=== PATIENT | female | born 1985 | race Asian ===

== ENCOUNTER 2025-01-18 22:34 | Emergency (ER) | payer OTHER ==
[~2025-01-18] VITALS: Ht 167.6 cm; Wt 69.1 kg
[2025-01-18 22:51] VITALS: TEMP 97.305224
[2025-01-18] MEDS ORDERED: VALP250S23 PO (23:21)
[2025-01-18 23:23] LABS: CALCIUM, TOTAL 8.4 mg/dL (8.8-10.5); CREATININE 0.87 mg/dL (0.60-1.30); GLOMERULAR FILTR. RATE CALC > 60 mL/min (>60); GLUCOSE,RANDOM 235 mg/dL (70-110); SODIUM SERUM 136 mmol/L (136-145); UREA NITROGEN, BLOOD 15 mg/dL (7-18)
[2025-01-18 23:24] LABS: PLATELET COUNT (AUTO) 195 K/uL (150-450); RED BLOOD CELL COUNT(AUTO) 3.41 MIL/uL (4.00-5.20); RED CELL DISTRIBUTION WIDTH 16.0 % (11.5-14.5); WHITE BLOOD COUNT (AUTO) 6.1 K/uL (4.5-11.0)
[2025-01-18] MEDS ORDERED: CLOZ100T61 PO (23:39)
[2025-01-18] MEDS ORDERED: LITH300C3 PO (23:39)
[2025-01-18] MEDS ORDERED: CLOZ25TA52 PO (23:49)
[2025-01-18] MEDS ORDERED: NORG1TAB97 PO (23:49)
[2025-01-18] MEDS ORDERED: ATRO5DRO13 OD (23:49)
[2025-01-18] MEDS ORDERED: LEVO125 PO (23:49)
[2025-01-18] MEDS ORDERED: SIMV-261 PO (23:49)
[2025-01-18] MEDS ORDERED: AMAN-24 PO (23:49)
[2025-01-18] MEDS ORDERED: METF-1211 PO (23:49)
[2025-01-18] MEDS ORDERED: XALA2.5OS OD (23:49)
[2025-01-18] MEDS ORDERED: PARO-38 PO (23:49)
[2025-01-19 00:18] LABS: COVID AG,FIA SOURCE NASAL SWAB
[2025-01-19 01:38] LABS: SARS-COV2 (COVID) ANTIGEN,FIA Negative (Negative)
[2025-01-19 01:43] LABS: ALCOHOL, URINE DRUG SCREEN NEGATIVE (NEGATIVE); AMPHET/METH SCREEN,URINE NEGATIVE (NEGATIVE); APPEARANCE,URINE CLEAR (CLEAR); BARBITURATE SCREEN, URINE NEGATIVE (NEGATIVE); CANNABINOID SCREEN,URINE NEGATIVE (NEGATIVE); COCAINE SCREEN,URINE NEGATIVE (NEGATIVE); GLUCOSE, URINE (UA) NEGATIVE (NEGATIVE); LEUKOCYTE ESTERASE ,URINE NEGATIVE (NEGATIVE); METHADONE SCREEN, URINE NEGATIVE (NEGATIVE); NITRATE,URINE NEGATIVE (NEGATIVE); OCCULT BLOOD,URINE NEGATIVE (NEGATIVE); PH,URINE DRUG SCREEN 6.0 (5.0-8.0); SPECIFIC GRAVITIY, URINE 1.011 (1.003-1.030)
[2025-01-19 03:05] VITALS: BP 116/65; PULSE 70; RESP 15; O2SAT 98
== END 2025-01-19 03:32 ==
LOC: EMS 22:34
DX: F20.9 Schizophrenia, unspecified (principal); E11.9 Type 2 diabetes mellitus without complications; I10 Essential (primary) hypertension; E78.5 Hyperlipidemia, unspecified; Z79.84 Long term (current) use of oral hypoglycemic drugs; Z79.899 Other long term (current) drug therapy; Z20.822 Contact with and (suspected) exposure to COVID-19
CPT/HCPCS: 99284; 87426; 80048; 80178; 84703; 85025; 36415; 82962; 80307; 81003; G0480

== ENCOUNTER 2025-01-30 22:10 | Inpatient (IN) | payer MEDICAID ==
[~2025-01-30 22:10] MED LIST: AMAN-24 PO; CLOZ100T61 PO; LITH600C PO; METF-1211 PO; PARO-37 PO; PARO-38 PO; VALP250S23 PO
[2025-01-31 03:04] LABS: COVID AG,FIA SOURCE NASAL SWAB
[2025-01-31 03:24] LABS: SARS-COV2 (COVID) ANTIGEN,FIA Negative (Negative)
[2025-01-31] MEDS: LORazepam 2 MG/ML VIAL IM ONE (03:37)
[2025-01-31 03:52] VITALS: O2SAT 98
[2025-01-31 04:31] LABS: APPEARANCE,URINE CLEAR (CLEAR); GLUCOSE, URINE (UA) NEGATIVE (NEGATIVE); LEUKOCYTE ESTERASE ,URINE NEGATIVE (NEGATIVE); NITRATE,URINE NEGATIVE (NEGATIVE); OCCULT BLOOD,URINE NEGATIVE (NEGATIVE); PH,URINE DRUG SCREEN 6.0 (5.0-8.0); SPECIFIC GRAVITIY, URINE 1.016 (1.003-1.030)
[2025-01-31 04:37] LABS: ALCOHOL, URINE DRUG SCREEN NEGATIVE (NEGATIVE); AMPHET/METH SCREEN,URINE NEGATIVE (NEGATIVE); BARBITURATE SCREEN, URINE NEGATIVE (NEGATIVE); CANNABINOID SCREEN,URINE NEGATIVE (NEGATIVE); COCAINE SCREEN,URINE NEGATIVE (NEGATIVE); METHADONE SCREEN, URINE NEGATIVE (NEGATIVE)
[2025-01-31 04:48] LABS: PLATELET COUNT (AUTO) 261 K/uL (150-450); RED BLOOD CELL COUNT(AUTO) 3.63 MIL/uL (4.00-5.20); RED CELL DISTRIBUTION WIDTH 16.2 % (11.5-14.5); WHITE BLOOD COUNT (AUTO) 7.9 K/uL (4.5-11.0)
[2025-01-31 05:10] LABS: CALCIUM, TOTAL 9.0 mg/dL (8.8-10.5); CREATININE 0.69 mg/dL (0.60-1.30); GLOMERULAR FILTR. RATE CALC > 60 mL/min (>60); GLUCOSE,RANDOM 174 mg/dL (70-110); SODIUM SERUM 137 mmol/L (136-145); UREA NITROGEN, BLOOD 16 mg/dL (7-18)
[2025-01-31] MEDS ORDERED: PNEUMOCOCCAL VACCINE POLYVALENT 0.5 ML SYRINGE [PPSV23] IM. ONE (07:00)
[2025-01-31 07:10] VITALS: BP 127/73; PULSE 82; RESP 17; TEMP 97.7
[2025-01-31 08:20] VITALS: BP 114/60; PULSE 96; RESP 16; TEMP 97.6; O2SAT 97
[2025-01-31] MEDS ORDERED: GLUCAGON,HUMAN RECOMBINANT 1 MG VIAL IM PRN (09:30)
[2025-01-31] MEDS: ATORVASTATIN CALCIUM 40 MG TABLET PO SCH (09:50)
[2025-01-31 11:26] LABS: GLUCOMETER DEV NAME(LOC) BV2S.; GLUCOSE,POINT OF CARE 157 MG/DL (70-110)
[2025-01-31] MEDS: INSULIN LISPRO 100 UNITS/ML SQ PRN (11:58)
[2025-01-31 16:51] LABS: GLUCOMETER DEV NAME(LOC) BV2S.; GLUCOSE,POINT OF CARE 127 MG/DL (70-110)
[2025-01-31] MEDS: VALPROIC ACID 250 MG/5 ML SOLUTION UDCUP PO SCH (20:30)
[2025-01-31 20:44] VITALS: BP 114/73; PULSE 88; RESP 18; TEMP 97.7; O2SAT 100
[2025-02-01] MEDS: LEVOTHYROXINE SODIUM 125 MCG TABLET PO SCH (06:33)
[2025-02-01 06:40] LABS: GLUCOMETER DEV NAME(LOC) BV2S.; GLUCOSE,POINT OF CARE 119 MG/DL (70-110)
[2025-02-01] MEDS: PROPRANOLOL HCL 20 MG TABLET PO SCH (08:12)
[2025-02-01 08:19] VITALS: BP 114/68; PULSE 100; RESP 18; TEMP 97.2; O2SAT 99
[2025-02-01 09:33] LABS: PLATELET COUNT (AUTO) 257 K/uL (150-450); RED BLOOD CELL COUNT(AUTO) 3.47 MIL/uL (4.00-5.20); RED CELL DISTRIBUTION WIDTH 16.1 % (11.5-14.5); WHITE BLOOD COUNT (AUTO) 7.2 K/uL (4.5-11.0)
[2025-02-01 11:18] LABS: ASPARTATE AMINOTRANSFERASE 23 U/L (15-37); CALCIUM, TOTAL 8.3 mg/dL (8.8-10.5); CHOL/HDL RATIO 4.5 (3.9-5.7); CREATININE 0.79 mg/dL (0.60-1.30); GLOMERULAR FILTR. RATE CALC > 60 mL/min (>60); GLUCOSE,RANDOM 265 mg/dL (70-110); LDL CHOL (CALC.) 62 mg/dL (0-130); SODIUM SERUM 139 mmol/L (136-145); TOTAL PROTEIN, SERUM 6.1 g/dL (6.4-8.2); UREA NITROGEN, BLOOD 12 mg/dL (7-18); VALPROIC ACID 52 mcg/mL (50-100)
[2025-02-01 12:16] LABS: GLUCOMETER DEV NAME(LOC) BV2S.; GLUCOSE,POINT OF CARE 123 MG/DL (70-110)
[2025-02-01] MEDS: LITHIUM CARBONATE 600 MG CAPSULE PO SCH (20:20)
[2025-02-01 20:43] VITALS: BP 125/67; PULSE 84; RESP 18; TEMP 97.6; O2SAT 97
[2025-02-02 06:40] LABS: GLUCOMETER DEV NAME(LOC) BV2S.; GLUCOSE,POINT OF CARE 122 MG/DL (70-110)
[2025-02-02 08:29] VITALS: BP 102/63; PULSE 79; RESP 16; TEMP 98.1; O2SAT 98
[2025-02-02 12:11] LABS: GLUCOMETER DEV NAME(LOC) BV2S.; GLUCOSE,POINT OF CARE 135 MG/DL (70-110)
[2025-02-02 16:11] LABS: GLUCOMETER DEV NAME(LOC) BV2S.; GLUCOSE,POINT OF CARE 160 MG/DL (70-110)
[2025-02-02 20:29] VITALS: BP 109/79; PULSE 80; RESP 17; TEMP 97.2; O2SAT 99
[2025-02-02 21:21] LABS: GLUCOMETER DEV NAME(LOC) BV2S.; GLUCOSE,POINT OF CARE 166 MG/DL (70-110)
[2025-02-03 07:11] LABS: GLUCOMETER DEV NAME(LOC) BV2S.; GLUCOSE,POINT OF CARE 121 MG/DL (70-110)
[2025-02-03 08:41] VITALS: BP 109/69; PULSE 85; RESP 17; TEMP 97.7; O2SAT 98
[2025-02-03 11:26] LABS: GLUCOMETER DEV NAME(LOC) BV2S.; GLUCOSE,POINT OF CARE 216 MG/DL (70-110)
[2025-02-03 17:51] LABS: GLUCOMETER DEV NAME(LOC) BV2S.; GLUCOSE,POINT OF CARE 187 MG/DL (70-110)
[2025-02-03 20:19] VITALS: BP 106/70; PULSE 89; RESP 17; TEMP 97.4; O2SAT 98
[2025-02-03 21:45] LABS: GLUCOMETER DEV NAME(LOC) BV3S.2; GLUCOSE,POINT OF CARE 241 MG/DL (70-110)
[2025-02-04 06:41] LABS: GLUCOMETER DEV NAME(LOC) BV3S.2; GLUCOSE,POINT OF CARE 132 MG/DL (70-110)
[2025-02-04 08:24] VITALS: BP 100/65; PULSE 82; RESP 16; TEMP 97.6; O2SAT 97
[2025-02-04 11:16] LABS: GLUCOMETER DEV NAME(LOC) BV3S.2; GLUCOSE,POINT OF CARE 190 MG/DL (70-110)
[2025-02-04 17:10] LABS: GLUCOMETER DEV NAME(LOC) BV3S.2; GLUCOSE,POINT OF CARE 229 MG/DL (70-110)
[2025-02-04 20:05] LABS: GLUCOMETER DEV NAME(LOC) BV3S.2; GLUCOSE,POINT OF CARE 179 MG/DL (70-110)
[2025-02-04 20:40] VITALS: BP 115/73; PULSE 80; RESP 17; TEMP 97.5; O2SAT 98
[2025-02-04] MEDS: ZOLPIDEM TARTRATE 10 MG TABLET PO PRN (21:01)
[2025-02-04] MEDS: LORazepam 2 MG/ML VIAL IM ONE (21:02)
[2025-02-04 21:55] VITALS: BP 127/78; PULSE 82; RESP 18; TEMP 97.2; O2SAT 100
[2025-02-05 06:26] LABS: GLUCOMETER DEV NAME(LOC) BV3S.2; GLUCOSE,POINT OF CARE 121 MG/DL (70-110)
[2025-02-05 08:27] VITALS: BP 132/81; PULSE 82; RESP 18; TEMP 98; O2SAT 100
[2025-02-05] MEDS: MULTIVITAMINS WITH IRON TABLET PO SCH (09:14)
[2025-02-05 11:46] LABS: GLUCOMETER DEV NAME(LOC) BV3S.2; GLUCOSE,POINT OF CARE 298 MG/DL (70-110)
[2025-02-05] MEDS ORDERED: CLOZ100T61 PO (14:42)
[2025-02-05] MEDS ORDERED: PROP20TA96 PO (14:42)
[2025-02-05] MEDS ORDERED: LITH600C PO (14:42)
[2025-02-05] MEDS ORDERED: MELA5TAB40 PO (14:42)
[2025-02-05 20:36] LABS: GLUCOMETER DEV NAME(LOC) BV3S.2; GLUCOSE,POINT OF CARE 222 MG/DL (70-110)
[2025-02-05 20:51] VITALS: BP 134/79; PULSE 78; RESP 18; TEMP 97.8; O2SAT 97
[2025-02-05 21:10] LABS: GLUCOMETER DEV NAME(LOC) BV3S.2; GLUCOSE,POINT OF CARE 178 MG/DL (70-110)
[2025-02-06 06:26] LABS: GLUCOMETER DEV NAME(LOC) BV3S.2; GLUCOSE,POINT OF CARE 151 MG/DL (70-110)
[2025-02-06 08:25] VITALS: RESP 16
[2025-02-06 11:08] LABS: CLOZAPINE & NORCLOZAPINE 624 ng/mL; NORCLOZAPINE 141 ng/mL (Not Estab.)
[2025-02-06 11:15] LABS: GLUCOMETER DEV NAME(LOC) BV3S.2; GLUCOSE,POINT OF CARE 169 MG/DL (70-110)
[2025-02-06] MEDS ORDERED: GABAPENTIN 300 MG CAPSULE PO PRN (15:45)
[2025-02-06] MEDS: GABAPENTIN 100 MG CAPSULE PO SCH (16:27)
[2025-02-06 17:10] LABS: GLUCOMETER DEV NAME(LOC) BV3S.2; GLUCOSE,POINT OF CARE 230 MG/DL (70-110)
[2025-02-06 20:37] VITALS: BP 125/74; PULSE 85; RESP 18; TEMP 97.8; O2SAT 100
[2025-02-06 21:25] LABS: GLUCOMETER DEV NAME(LOC) BV3S.2; GLUCOSE,POINT OF CARE 155 MG/DL (70-110)
[2025-02-07 06:10] LABS: GLUCOMETER DEV NAME(LOC) BV3S.2; GLUCOSE,POINT OF CARE 156 MG/DL (70-110)
[2025-02-07 08:23] VITALS: BP 124/81; PULSE 79; RESP 16; TEMP 97.6; O2SAT 98
[2025-02-07 11:20] LABS: GLUCOMETER DEV NAME(LOC) BV3S.2; GLUCOSE,POINT OF CARE 238 MG/DL (70-110)
[2025-02-07 20:39] VITALS: BP 120/72; PULSE 85; RESP 18; TEMP 97.8; O2SAT 99
[2025-02-08 06:40] LABS: GLUCOMETER DEV NAME(LOC) BV3S.2; GLUCOSE,POINT OF CARE 153 MG/DL (70-110)
[2025-02-08 08:01] VITALS: BP 108/60; PULSE 88; RESP 16; TEMP 97.7; O2SAT 98
[2025-02-08 09:15] LABS: PLATELET COUNT (AUTO) 241 K/uL (150-450); RED BLOOD CELL COUNT(AUTO) 3.65 MIL/uL (4.00-5.20); RED CELL DISTRIBUTION WIDTH 15.6 % (11.5-14.5); WHITE BLOOD COUNT (AUTO) 7.6 K/uL (4.5-11.0)
[2025-02-08 11:21] LABS: GLUCOMETER DEV NAME(LOC) BV3S.2; GLUCOSE,POINT OF CARE 166 MG/DL (70-110)
[2025-02-08 16:56] LABS: GLUCOMETER DEV NAME(LOC) BV3S.2; GLUCOSE,POINT OF CARE 168 MG/DL (70-110)
[2025-02-08 20:28] VITALS: BP 127/80; PULSE 88; RESP 17; TEMP 97.7; O2SAT 99
[2025-02-08 21:35] LABS: GLUCOMETER DEV NAME(LOC) BV3S.2; GLUCOSE,POINT OF CARE 182 MG/DL (70-110)
[2025-02-09 06:41] LABS: GLUCOMETER DEV NAME(LOC) BV3S.2; GLUCOSE,POINT OF CARE 140 MG/DL (70-110)
[2025-02-09 08:26] VITALS: BP 111/69; PULSE 96; RESP 17; TEMP 97.2; O2SAT 95
[2025-02-09 11:21] LABS: GLUCOMETER DEV NAME(LOC) BV3S.2; GLUCOSE,POINT OF CARE 155 MG/DL (70-110)
[2025-02-09 16:06] LABS: GLUCOMETER DEV NAME(LOC) BV3S.2; GLUCOSE,POINT OF CARE 221 MG/DL (70-110)
[2025-02-09 21:21] LABS: GLUCOMETER DEV NAME(LOC) BV3S.2; GLUCOSE,POINT OF CARE 180 MG/DL (70-110)
[2025-02-10 06:26] LABS: GLUCOMETER DEV NAME(LOC) BV3S.2; GLUCOSE,POINT OF CARE 136 MG/DL (70-110)
[2025-02-10 08:41] VITALS: BP 90/67; PULSE 88; RESP 17; TEMP 97.7; O2SAT 98
[2025-02-10 17:21] LABS: GLUCOMETER DEV NAME(LOC) BV3S.2; GLUCOSE,POINT OF CARE 161 MG/DL (70-110)
[2025-02-10 17:21] LABS: GLUCOMETER DEV NAME(LOC) BV3S.2; GLUCOSE,POINT OF CARE 208 MG/DL (70-110)
[2025-02-10 20:17] VITALS: BP 108/60; PULSE 79; RESP 18; TEMP 97.3
[2025-02-10 20:35] LABS: GLUCOMETER DEV NAME(LOC) BV3S.2; GLUCOSE,POINT OF CARE 229 MG/DL (70-110)
[2025-02-11 11:03] VITALS: PULSE 82; RESP 17; TEMP 98.1; O2SAT 97
[2025-02-11] MEDS ORDERED: BENZOCAINE/MENTHOL [CEPACOL] LOZENGE PO PRN (18:30)
[2025-02-11 20:11] LABS: GLUCOMETER DEV NAME(LOC) BV3S.2; GLUCOSE,POINT OF CARE 214 MG/DL (70-110)
[2025-02-11 20:11] LABS: GLUCOMETER DEV NAME(LOC) BV3S.2; GLUCOSE,POINT OF CARE 144 MG/DL (70-110)
[2025-02-11 20:11] LABS: GLUCOMETER DEV NAME(LOC) BV3S.2; GLUCOSE,POINT OF CARE 219 MG/DL (70-110)
[2025-02-11 20:31] VITALS: BP 130/79; PULSE 86; RESP 17; TEMP 97.4; O2SAT 97
[2025-02-11] MEDS: LITHIUM CARBONATE 300 MG CAPSULE PO SCH (21:13)
[2025-02-11 21:41] LABS: GLUCOMETER DEV NAME(LOC) BV3S.2; GLUCOSE,POINT OF CARE 181 MG/DL (70-110)
[2025-02-12 06:40] LABS: GLUCOMETER DEV NAME(LOC) BV3S.2; GLUCOSE,POINT OF CARE 141 MG/DL (70-110)
[2025-02-12 08:44] VITALS: BP 118/79; PULSE 86; RESP 17; TEMP 97.9; O2SAT 97
[2025-02-12 11:21] LABS: GLUCOMETER DEV NAME(LOC) BV3S.2; GLUCOSE,POINT OF CARE 318 MG/DL (70-110)
[2025-02-12 19:16] LABS: GLUCOMETER DEV NAME(LOC) BV3S.2; GLUCOSE,POINT OF CARE 265 MG/DL (70-110)
[2025-02-12 20:11] LABS: GLUCOMETER DEV NAME(LOC) BV3S.2; GLUCOSE,POINT OF CARE 197 MG/DL (70-110)
[2025-02-12 21:10] VITALS: BP 129/89; PULSE 87; RESP 18; TEMP 98.2; O2SAT 97
[2025-02-13 06:36] LABS: GLUCOMETER DEV NAME(LOC) BV3S.2; GLUCOSE,POINT OF CARE 146 MG/DL (70-110)
[2025-02-13 08:30] VITALS: BP 106/65; PULSE 86; RESP 16; TEMP 97.8; O2SAT 99
[2025-02-13 11:50] LABS: GLUCOMETER DEV NAME(LOC) BV3S.2; GLUCOSE,POINT OF CARE 127 MG/DL (70-110)
[2025-02-13] MEDS: TUBERCULIN, PURIFIED PROTEIN DERIVATIVE 5 TU/0.1 ML SYRINGE ID ONE (15:46)
[2025-02-13] MEDS: GABAPENTIN 300 MG CAPSULE PO SCH (16:13)
[2025-02-13 16:36] LABS: GLUCOMETER DEV NAME(LOC) BV3S.2; GLUCOSE,POINT OF CARE 276 MG/DL (70-110)
[2025-02-13 20:54] VITALS: BP 117/75; PULSE 87; RESP 17; TEMP 97.3; O2SAT 99
[2025-02-14 03:21] LABS: GLUCOMETER DEV NAME(LOC) BV3S.2; GLUCOSE,POINT OF CARE 254 MG/DL (70-110)
[2025-02-14 07:00] LABS: GLUCOMETER DEV NAME(LOC) BV3S.2; GLUCOSE,POINT OF CARE 148 MG/DL (70-110)
[2025-02-14 08:25] VITALS: BP 117/73; PULSE 87; RESP 16; TEMP 97.6; O2SAT 98
[2025-02-14 13:36] LABS: GLUCOMETER DEV NAME(LOC) BV3S.2; GLUCOSE,POINT OF CARE 248 MG/DL (70-110)
[2025-02-14 17:06] LABS: GLUCOMETER DEV NAME(LOC) BV3S.2; GLUCOSE,POINT OF CARE 230 MG/DL (70-110)
[2025-02-14 20:27] VITALS: BP 138/72; PULSE 81; RESP 18; TEMP 98.2; O2SAT 98
[2025-02-14 21:46] LABS: GLUCOMETER DEV NAME(LOC) BV3S.2; GLUCOSE,POINT OF CARE 197 MG/DL (70-110)
[2025-02-15 06:40] LABS: GLUCOMETER DEV NAME(LOC) BV3S.2; GLUCOSE,POINT OF CARE 177 MG/DL (70-110)
[2025-02-15 08:21] VITALS: BP 114/71; PULSE 81; RESP 17; TEMP 98.2; O2SAT 99
[2025-02-15 10:10] LABS: PLATELET COUNT (AUTO) 220 K/uL (150-450); RED BLOOD CELL COUNT(AUTO) 3.53 MIL/uL (4.00-5.20); RED CELL DISTRIBUTION WIDTH 15.8 % (11.5-14.5); WHITE BLOOD COUNT (AUTO) 7.7 K/uL (4.5-11.0)
[2025-02-15 11:06] LABS: GLUCOMETER DEV NAME(LOC) BV3S.2; GLUCOSE,POINT OF CARE 230 MG/DL (70-110)
[2025-02-15 16:45] VITALS: BP 121/83; PULSE 83; RESP 18; TEMP 98.3; O2SAT 99
[2025-02-15 16:53] VITALS: BP 136/92; PULSE 86; RESP 18; TEMP 97.3; O2SAT 97
[2025-02-15 17:00] LABS: GLUCOMETER DEV NAME(LOC) BV3S.2; GLUCOSE,POINT OF CARE 212 MG/DL (70-110)
[2025-02-15 20:31] LABS: GLUCOMETER DEV NAME(LOC) BV3S.2; GLUCOSE,POINT OF CARE 193 MG/DL (70-110)
[2025-02-15 20:54] VITALS: BP 125/86; PULSE 88; RESP 18; TEMP 97.9
[2025-02-16 07:16] LABS: GLUCOMETER DEV NAME(LOC) BV3S.2; GLUCOSE,POINT OF CARE 152 MG/DL (70-110)
[2025-02-16 08:23] VITALS: BP 132/68; PULSE 93; RESP 16; TEMP 97.9; O2SAT 97
[2025-02-16 16:33] VITALS: BP 131/86; PULSE 80; RESP 18; O2SAT 99
[2025-02-16 17:26] LABS: GLUCOMETER DEV NAME(LOC) BV3S.2; GLUCOSE,POINT OF CARE 158 MG/DL (70-110)
[2025-02-16 21:24] VITALS: BP 132/93; PULSE 88; RESP 17; TEMP 97.3; O2SAT 99
[2025-02-17 01:55] LABS: GLUCOMETER DEV NAME(LOC) BV3S.2; GLUCOSE,POINT OF CARE 138 MG/DL (70-110)
[2025-02-17 06:31] LABS: GLUCOMETER DEV NAME(LOC) BV3S.2; GLUCOSE,POINT OF CARE 166 MG/DL (70-110)
[2025-02-17 08:42] VITALS: RESP 16
[2025-02-17 13:31] LABS: GLUCOMETER DEV NAME(LOC) BV3S.2; GLUCOSE,POINT OF CARE 237 MG/DL (70-110)
[2025-02-17] MEDS: MELATONIN 5 MG TABLET PO PRN (20:45)
[2025-02-17 22:29] VITALS: BP 136/87; PULSE 84; RESP 17; TEMP 97.4
[2025-02-17 23:41] LABS: GLUCOMETER DEV NAME(LOC) BV3S.2; GLUCOSE,POINT OF CARE 246 MG/DL (70-110)
[2025-02-18] MEDS ORDERED: HALO10TA21 PO (08:46)
[2025-02-18] MEDS ORDERED: GABA-1181 PO (08:46)
[2025-02-18] MEDS ORDERED: LITH300C3 PO (08:46)
[2025-02-18 08:53] VITALS: BP 117/71; PULSE 91; RESP 16; TEMP 97.9; O2SAT 97
[2025-02-18 11:07] LABS: CLOZAPINE & NORCLOZAPINE 1041 ng/mL; NORCLOZAPINE 248 ng/mL (Not Estab.)
[2025-02-18 20:30] VITALS: BP 117/80; PULSE 76; RESP 17; TEMP 97.7; O2SAT 98
[2025-02-18 21:50] LABS: GLUCOMETER DEV NAME(LOC) BV3S.2; GLUCOSE,POINT OF CARE 240 MG/DL (70-110)
[2025-02-18 21:50] LABS: GLUCOMETER DEV NAME(LOC) BV3S.2; GLUCOSE,POINT OF CARE 192 MG/DL (70-110)
[2025-02-18 22:20] LABS: GLUCOMETER DEV NAME(LOC) BV3S.2; GLUCOSE,POINT OF CARE 238 MG/DL (70-110)
[2025-02-19 08:32] VITALS: BP 113/68; PULSE 89; RESP 17; TEMP 97.1; O2SAT 98
[2025-02-19 16:55] LABS: GLUCOMETER DEV NAME(LOC) BV3S.2; GLUCOSE,POINT OF CARE 168 MG/DL (70-110)
== END 2025-02-19 10:22 | DRG 750 ==
LOC: EMS 22:17 → B3A 01-31 04:15 → CMPBEDREQ 01-31 16:11
PROVIDERS: ADMIT Psychiatry & Neurology Psychiatry; ATTEND Psychiatry & Neurology Psychiatry
PROC: GZHZZZZ Group Psychotherapy (ICD-10-PCS; principal; 2025-01-31)
PROC: GZ58ZZZ Individual Psychotherapy, Cognitive-Behavioral (ICD-10-PCS; 2025-01-31)
PROC: GZ56ZZZ Individual Psychotherapy, Supportive (ICD-10-PCS; 2025-02-01)
DX: F20.9 Schizophrenia, unspecified (principal); E11.9 Type 2 diabetes mellitus without complications; E78.00 Pure hypercholesterolemia, unspecified; I10 Essential (primary) hypertension; Z20.822 Contact with and (suspected) exposure to COVID-19; J45.909 Unspecified asthma, uncomplicated; Z55.9 Problems related to education and literacy, unspecified; Z59.9 Problem related to housing and economic circumstances, unspecified; Z63.9 Problem related to primary support group, unspecified; Z65.3 Problems related to other legal circumstances; Z86.73 Personal history of transient ischemic attack (TIA), and cerebral infarction without residual deficits; Z79.899 Other long term (current) drug therapy
CPT/HCPCS: 80048; 80053; 80061; 80159; 80164; 80178; 80307; 81003; 82962; 83036; 84436; 84443; 84703; 85025; 87081; 96372; 99285; G0480; J1200; J1630; J1631; J2060